=== PATIENT | male | born 1995 | race Two or more races ===

== ENCOUNTER 2020-04-13 16:51 | Inpatient (IN) | payer OTHER ==
[~2020-04-13] VITALS: Ht 190.5 cm; Wt 105.7 kg
[2020-04-13 18:58] LABS: COVID AG,FIA SOURCE NASOPHARYNGEAL
[2020-04-13 19:05] LABS: BASOPHILS % (AUTO) 0.5 % (0.0-2.0); EOSINOPHILS % (AUTO) 0.3 % (1.0-6.0); HEMATOCRIT 47.4 % (41-53); HEMOGLOBIN 15.8 g/dL (13.5-17.5); LYMPHOCYTES # (AUTO) 2.5 K/uL (1.0-4.8); LYMPHOCYTES % (AUTO) 36.8 % (22.0-44.0); MEAN CORPUSCULAR HEMOGLOBIN 32.1 pg (26.0-34.0); MEAN CORPUSCULAR HGB CONC 33.4 G/dL (31.0-37.0); MEAN CORPUSCULAR VOLUME 96 fL (80-100); MONOCYTES # (AUTO) 0.5 K/uL (0.1-1.0); MONOCYTES % (AUTO) 7.2 % (2.0-9.0); NEUTROPHILS # (AUTO) 3.7 K/uL (1.8-7.7); NEUTROPHILS % (AUTO) 55.2 % (40.0-70.0); PLATELET COUNT (AUTO) 201 K/uL (150-450); RED BLOOD CELL COUNT(AUTO) 4.94 MIL/uL (4.50-5.90)
[2020-04-13 19:43] LABS: ANION GAP 11 mmol/L (8-16); CARBON DIOXIDE 26 mmol/L (22-29); CHLORIDE 101 mmol/L (98-107); CREATININE 1.01 mg/dL (0.60-1.30); GLOMERULAR FILTR. RATE CALC > 60 mL/min (>60); GLUCOSE,RANDOM 87 mg/dL (70-110); POTASSIUM 4.1 mmol/L (3.5-5.1); SODIUM SERUM 138 mmol/L (136-145); UREA NITROGEN, BLOOD 10 mg/dL (7-18)
[2020-04-13 19:48] LABS: ALANINE AMINOTRANSFERASE 53 U/L (12-78); ALBUMIN 4.8 g/dL (3.4-5.0); ALKALINE PHOSPHATASE 60 U/L (46-116); ASPARTATE AMINOTRANSFERASE 32 U/L (15-37); BILIRUBIN,TOTAL 1.4 mg/dL (0.1-1.0); TOTAL PROTEIN, SERUM 9.7 g/dL (6.4-8.2)
[2020-04-13 21:15] VITALS: BP 154/99
[2020-04-13] MEDS ORDERED: IBUPROFEN 400 MG TABLET PO PRN (22:00)
[2020-04-13] MEDS ORDERED: ONDANSETRON HCL 4 MG TABLET PO PRN (22:00)
[2020-04-13] MEDS ORDERED: DOCUSATE SODIUM 100 MG CAPSULE PO PRN (22:00)
[2020-04-13] MEDS ORDERED: MAGNESIUM HYDROXIDE SUSPENSION 30 ML UDCUP PO PRN (22:00)
[2020-04-13] MEDS ORDERED: NICOTINE 14 MG/24 HOUR PATCH TD PRN (22:00)
[2020-04-13] MEDS ORDERED: PETROLATUM,WHITE 28 GM JELLY TP PRN (22:00)
[2020-04-13] MEDS ORDERED: GuaiFENesin/D-METHORPHAN [SUGAR-FREE] 200-20MG/10 ML SYRUP UDCUP PO PRN (22:00)
[2020-04-13] MEDS ORDERED: CloNIDine HCL 0.1 MG TABLET PO PRN (22:00)
[2020-04-13] MEDS ORDERED: ALBUTEROL SULFATE HFA 90 MCG/PUFF 8 GM INHALER IH PRN (22:00)
[2020-04-13] MEDS ORDERED: LOPERAMIDE HCL 2 MG CAPSULE PO PRN (22:00)
[2020-04-13] MEDS ORDERED: MAG HYDROX/AL HYDROX/SIMETH ES 30 ML SUSPENSION UDCUP PO PRN (22:00)
[2020-04-14] MEDS: ACETAMINOPHEN 325 MG TABLET PO PRN ×2 (02:01→20:57)
[2020-04-14 02:12] VITALS: BP 143/82
[2020-04-14] MEDS ORDERED: INFLUENZA VIRUS VACCINE QVS 2020-21 (6MO+)/PF 60 MCG/0.5 ML SYRINGE IM ONE (03:45)
[2020-04-14 08:03] VITALS: BP 138/86
[2020-04-14 11:57] VITALS: BP 141/84
[2020-04-14] MEDS: SERTRALINE HCL 50 MG TABLET PO SCH (14:40)
[2020-04-14 16:22] VITALS: BP 138/76
[2020-04-14 19:25] VITALS: BP 130/61
[2020-04-15 05:42] VITALS: BP 140/80
[2020-04-15 07:28] VITALS: BP 144/71
[2020-04-15] MEDS: SERTRALINE HCL 50 MG TABLET PO SCH (09:00)
[2020-04-15 15:28] VITALS: BP 133/90
[2020-04-15 19:25] VITALS: BP 137/77
[2020-04-16 04:19] VITALS: BP 113/66
[2020-04-16] MEDS: SERTRALINE HCL 50 MG TABLET PO SCH (08:41)
[2020-04-16 08:56] VITALS: BP 141/74
[2020-04-16 20:46] VITALS: BP 134/78
[2020-04-17 00:54] VITALS: BP 127/79
[2020-04-17 04:42] VITALS: BP 131/72
[2020-04-17 09:12] VITALS: BP 129/71
[2020-04-17] MEDS: SERTRALINE HCL 50 MG TABLET PO SCH (11:44)
[2020-04-17 20:20] VITALS: BP 124/74
[2020-04-18 05:12] VITALS: BP 114/54
[2020-04-18 07:34] VITALS: BP 123/63
[2020-04-18] MEDS: SERTRALINE HCL 50 MG TABLET PO SCH (09:09)
[2020-04-18 19:55] VITALS: BP 124/61
[2020-04-19 04:55] VITALS: BP 117/60
[2020-04-19] MEDS: SERTRALINE HCL 50 MG TABLET PO SCH (08:23)
[2020-04-19 08:42] VITALS: BP 120/59
[2020-04-19] MEDS ORDERED: SERT50TA12 PO (13:12)
== END 2020-04-19 14:45 | DRG 885 ==
LOC: EMS 16:51 → UNDOADMIN 18:44 → 6S 18:44 → 5S 18:44
PROVIDERS: ADMIT Internal Medicine; ATTEND Internal Medicine
DX: F33.2 Major depressive disorder, recurrent severe without psychotic features (principal); T71.162A Asphyxiation due to hanging, intentional self-harm, initial encounter; R45.851 Suicidal ideations; Z20.822 Contact with and (suspected) exposure to COVID-19; R03.0 Elevated blood-pressure reading, without diagnosis of hypertension; Z79.899 Other long term (current) drug therapy; Z23 Encounter for immunization; Y92.89 Other specified places as the place of occurrence of the external cause
CPT/HCPCS: 87426; G0480; Q0162